=== PATIENT | female | born 1975 | race Caucasian/White ===

== ENCOUNTER → 2016-09-12 | Outpatient (CLI) | payer OTHER ==
--- NOTE | 2016-09-12 15:09 | MA ---
Screening Digital Mammogram With Tomosynthesis Clinical Indications: Routine screening. Technique: Standard digital cephalocaudal and tomosynthesis mediolateral oblique projections are obt ained. An additional CC view is performed of the right breast. The digital images were processed by rupa Watkins computer aided detection system. Comparison: December 2014, December 2013, December 2011 and October 2010 Breast density: B; There are scattered fibroglandular densities. Findings: CAD was reviewed. No suspicious findings are identified. Impression: Negative mammogram. BI-RADS 1. Recommendation: Routine screening is recommended in one year. [facility] will send a result letter to the patient. Negative mammography should not preclude additional workup of a clinically suspicious finding. The patient's information is entered into a reminder system with a target due date for her next mammo gram.
== END ==
LOC: FIMAGING 14:15
DX: Z12.31 Encounter for screening mammogram for malignant neoplasm of breast (principal)
CPT/HCPCS: G0202

== ENCOUNTER 2017-09-19 09:27 | Observation (INO) | payer OTHER ==
--- NOTE | 2017-09-19 10:14 | EDPHY ---
H & P Time Seen by Provider: 09/19/17 09:49 HPI/ROS: Chief complaint. Abdominal pain HPI. 41-year-old female presents emergency department with sudden onset of right mid abdominal pain starting at 9:00 p.m. last night. She is to use Tums and Pepto-Bismol without relief. She has a history of a ruptured ovarian cyst and feel similar but she has no low abdominal pain. It hurts to move. Pain is right mid abdomen described as sharp dull and achy. No vomiting or diarrhea. No urinary symptoms. No fever. No chest discomfort or trouble breathing. ROS Constitutional. no fever/chills, no weakness Eyes. no problems with vision ENT. no sore throat, no nasal drainage Cardiovascular. no chest pain Respiratory. no shortness of breath, no cough Abdominal. Right mid abdominal pain without vomiting or diarrhea . no problems urinating MS. no calf pain/swelling, no neck/back pain, no joint pain Skin. no rash Lymph. no swollen glands Neuro. no headache, no dizziness, no difficulty walking or with speech Past Medical/Surgical History: Ruptured ovarian cyst, hypothyroid, Social History: , nonsmoker, no alcohol Smoking Status: Never smoked Physical Exam: General Appearance: Alert well-developed female moderate distress vital signs stable Eyes: Pupils equal and round no pallor or injection. ENT, Mouth: Mucous membranes are moist. Respiratory: There are no retractions, lungs are clear to auscultation. Cardiovascular: Regular rate and rhythm. Gastrointestinal: Abdomen is soft with diffuse tenderness in the mid abdomen but especially on the right side. She is tender in the right upper quadrant and right lower quadrant at McBurney's point. Normal bowel sounds. No masses Neurological: Awake and alert, sensory and motor exams grossly normal. Skin: Warm and dry, no rashes. Musculoskeletal: Neck is supple nontender. Extremities symmetrical, full range of motion. Psychiatric: Patient is oriented X 3, there is no agitation. Constitutional: Initial Vital Signs Temperature (C) 36.6 C 09/19/17 09:30 Heart Rate 71 09/19/17 09:30 Respiratory Rate 18 09/19/17 09:30 Blood Pressure 114/73 09/19/17 09:30 O2 Sat (%) 99 09/19/17 09:30 O2 Delivery Mode Room Air Allergies/Adverse Reactions: No Known Allergies Allergy (Verified 09/19/17 09:29) Home Medications: Medication Instructions Recorded Synthroid 09/19/17 Medical Decision Making - Diagnostics Imaging Results: Imaging Impressions Abdomen CT 09/19/17 10:34 Impression: Acute appendicitis. Findings and recommendations discussed with Emergency Department physician, Tyler James at 1148 hour, 09/19/2017. Final report concurs with initial preliminary interpretation. A test result has been communicated to a licensed care provider and documented in the [employer] Critical Result system on 09/19/2017 11:49, Message ID [id number]. CT abdomen and pelvis with IV contrast reviewed by me and discussed with consistent with acute appendicitis Procedures: IV normal saline. Patient currently declines pain medication ED Course/Re-evaluation: Re-evaluation 11:50 a.m.. Patient, her , and I discussed imaging and lab results. We discussed treatment plan including recommendation for admission and surgery. She expresses understanding and agreement Patient is given IV Invanz, kept NPO, IV fluids I consulted and discussed the case with , surgery who will see the patient in the emergency department Differential Diagnosis: I considered diverticulitis, bowel obstruction, urinary tract infection, appendicitis - Data Points Laboratory Results: Laboratory Results 09/19/17 10:00 09/19/17 10:00 09/19/17 09/19/17 09/19/17 10:00 10:00 10:00 WBC 9.46 10^3/uL 10^3/uL (3.80-9.50) RBC 4.07 10^6/uL L 10^6/uL (4.18-5.33) Hgb 12.6 g/dL g/dL (12.6-16.3) Hct 37.0 % L % (38.0-47.0) MCV 90.9 fL fL (81.5-99.8) MCH 31.0 pg pg (27.9-34.1) MCHC 34.1 g/dL g/dL (32.4-36.7) RDW 12.5 % % (11.5-15.2) Plt Count 185 10^3/uL 10^3/uL (150-400) MPV 9.3 fL fL (8.7-11.7) Neut % (Auto) 74.5 % H % (39.3-74.2) Lymph % (Auto) 16.7 % % (15.0-45.0) [place] % (Auto) 6.2 % % (4.5-13.0) Eos % (Auto) 1.9 % % (0.6-7.6) Baso % (Auto) 0.4 % % (0.3-1.7) Nucleat RBC Rel Count 0.0 % % (0.0-0.2) Absolute Neuts (auto) 7.04 10^3/uL H 10^3/uL (1.70-6.50) Absolute Lymphs (auto) 1.58 10^3/uL 10^3/uL (1.00-3.00) Absolute Monos (auto) 0.59 10^3/uL 10^3/uL (0.30-0.80) Absolute Eos (auto) 0.18 10^3/uL 10^3/uL (0.03-0.40) Absolute Basos (auto) 0.04 10^3/uL 10^3/uL (0.02-0.10) Absolute Nucleated RBC 0.00 10^3/uL 10^3/uL (0-0.01) Immature Gran % 0.3 % % (0.0-1.1) Immature Gran # 0.03 10^3/uL 10^3/uL (0.00-0.10) Sodium 141 mEq/L mEq/L (135-145) Potassium 4.1 mEq/L mEq/L (3.5-5.2) Chloride 105 mEq/L mEq/L (97-110) Carbon Dioxide 25 mEq/l mEq/l (22-31) Anion Gap 11 mEq/L mEq/L (8-16) BUN 12 mg/dL mg/dL (7-23) Creatinine 0.9 mg/dL mg/dL (0.6-1.0) Estimated GFR > 60 Glucose 86 mg/dL mg/dL (70-100) Calcium 9.2 mg/dL mg/dL (8.5-10.4) Total Bilirubin 0.6 mg/dL mg/dL (0.1-1.4) Conjugated Bilirubin 0.2 mg/dL mg/dL (0.0-0.5) Unconjugated Bilirubin 0.4 mg/dL mg/dL (0.0-1.1) AST 23 IU/L IU/L (14-46) ALT 31 IU/L IU/L (9-52) Alkaline Phosphatase 39 IU/L IU/L (38-126) Total Protein 6.2 g/dL L g/dL (6.3-8.2) Albumin 3.7 g/dL g/dL (3.5-5.0) Lipase 56 IU/L IU/L (23-300) Beta HCG, Qual NEGATIVE Urine Color Urine Appearance Urine pH Ur Specific [place] Urine Protein Urine Ketones Urine Blood Urine Nitrate Urine Bilirubin Urine Urobilinogen Ur Leukocyte Esterase Urine Glucose 09/19/17 09:50 WBC RBC Hgb Hct MCV MCH MCHC RDW Plt Count MPV Neut % (Auto) Lymph % (Auto) [place] % (Auto) Eos % (Auto) Baso % (Auto) Nucleat RBC Rel Count Absolute Neuts (auto) Absolute Lymphs (auto) Absolute Monos (auto) Absolute Eos (auto) Absolute Basos (auto) Absolute Nucleated RBC Immature Gran % Immature Gran # Sodium Potassium Chloride Carbon Dioxide Anion Gap BUN Creatinine Estimated GFR Glucose Calcium Total Bilirubin Conjugated Bilirubin Unconjugated Bilirubin AST ALT Alkaline Phosphatase Total Protein Albumin Lipase Beta HCG, Qual Urine Color PALE YELLOW Urine Appearance CLEAR Urine pH 9.0 H (5.0-7.5) Ur Specific [place] 1.006 (1.002-1.030) Urine Protein NEGATIVE (NEGATIVE) Urine Ketones NEGATIVE (NEGATIVE) Urine Blood NEGATIVE (NEGATIVE) Urine Nitrate NEGATIVE (NEGATIVE) Urine Bilirubin NEGATIVE (NEGATIVE) Urine Urobilinogen NEGATIVE EU EU (0.2-1.0) Ur Leukocyte Esterase NEGATIVE (NEGATIVE) Urine Glucose NEGATIVE (NEGATIVE) Medications Given: Discontinued Medications Bupivacaine HCl (Sensorcaine 0.25% Sdv) Confirm Administered Dose 30 ml .ROUTE .STK-MED ONE Stop: 09/19/17 12:49 Last Admin: 09/19/17 13:57 Dose: 30 ml Epinephrine HCl (Epinephrine) Confirm Administered Dose 1 mg .ROUTE .STK-MED ONE Stop: 09/19/17 12:50 Last Admin: 09/19/17 13:57 Dose: 0.15 mg Ertapenem (Invanz) 1 gm IVP EDNOW ONE PRN Reason: Protocol Stop: 09/19/17 12:02 Last Admin: 09/19/17 12:18 Dose: 1 gm Hydromorphone HCl (Dilaudid) 0.5 mg IVP EDNOW ONE Stop: 09/19/17 12:27 Last Admin: 09/19/17 12:27 Dose: 0.5 mg Sodium Chloride (Ns) 1,000 mls @ 0 mls/hr IV EDNOW ONE; Wide Open PRN Reason: Protocol Stop: 09/19/17 10:35 Last Admin: 09/19/17 10:40 Dose: 1,000 mls Sodium Chloride (Ns) 1,000 mls @ 0 mls/hr IV EDNOW ONE; Wide Open PRN Reason: Protocol Stop: 09/19/17 12:02 Last Admin: 09/19/17 12:25 Dose: 1,000 mls Lactated Ringer's (Lr) 1,000 mls @ 0 mls/hr IV ONCE ONE PRN Reason: As Directed Stop: 09/19/17 13:08 Last Admin: 09/19/17 13:21 Dose: 1,000 mls Midazolam HCl (Versed) 2 mg IVP ONCALL ONE Stop: 09/19/17 13:41 Last Admin: 09/19/17 13:58 Dose: Not Given Departure - Departure Disposition: To OP Cath/Surgery Clinical Impression: Acute appendicitis Qualifiers: Acute appendicitis type: with localized peritonitis Qualified Code(s): K35.3 - Acute appendicitis with localized peritonitis Condition: Good
[2017-09-19] MEDS ORDERED: NS 1,000 ML IV ONE ×2 (10:34→12:01)
[2017-09-19 10:40] LABS: PLATELET COUNT 185 10^3/uL (150-400)
[2017-09-19] MEDS ORDERED: IOPAMIDOL (ISOVUE-300) 100 ML BTL ONE (11:02)
[2017-09-19] MEDS ORDERED: ERTAPENEM 1 GM VIAL IVP ONE (12:01)
[2017-09-19] MEDS ORDERED: HYDROmorphONE/DILAUDID 1 MG/ML INJ ONE (12:03)
[2017-09-19] MEDS ORDERED: HYDROmorphONE/DILAUDID 1 MG/ML INJ IVP ONE (12:26)
[2017-09-19] MEDS ORDERED: BUPIVACAINE 0.25% 30 ML SDV ONE (12:48)
--- NOTE | 2017-09-19 13:05 | PDGENHP ---
History and Physical - Chief Complaint ABDOMINAL PAIN - History of Present Illness pain started last night at 10pm. Since then has had unrelenting periumbilical pain with nausea. Pain hasnt moved. 6/10 in intensity. Has never had pain like this previously. No fevers or chills History Information - Allergies/Home Medication List Allergies/Adverse Reactions: No Known Allergies Allergy (Verified 09/19/17 09:29) Home Medications: Synthroid 09/19/17 [Last Taken 09/19/17 07:00] I have personally reviewed and updated: family history, medical history, social history, surgical history Past Medical History: hypothyroid - Surgical History Additional surgical history: c-sxn x2 - Family History Positive for: non-pertinent - Social History Smoking Status: Never smoked Alcohol Use: Occasionally Drug Use: None Additional social history: works in [employer], wants to get back to working out Review of Systems Review of Systems: ROS: 10pt was reviewed & negative except for what was stated in HPI & below Physical Exam Physical Exam: Temp Pulse Resp BP Pulse Ox 36.6 C 72 16 114/74 100 09/19/17 12:37 09/19/17 12:37 09/19/17 12:37 09/19/17 12:37 09/19/17 12:37 Constitutional: no apparent distress, appears nourished, not in pain Eyes: PERRL, anicteric sclera, EOMI Ears, Nose, Mouth, Throat: moist mucous membranes, hearing normal, ears appear normal, no oral mucosal ulcers Cardiovascular: regular rate and rhythym, no murmur, rub, or gallop, No edema Respiratory: no respiratory distress, no rales or rhonchi, clear to auscultation Gastrointestinal: normoactive bowel sounds, other (TTP magdalena-umbilical) Genitourinary: no bladder fullness, no bladder tenderness Skin: warm, normal color, no rashes or abrasions, no fluctuance, no induration, No mottled Musculoskeletal: full muscle strength, no muscle tenderness, normal joint ROM, no joint effusions Psychiatric: interacting appropriately, not anxious, not encephalopathic, thought process linear Lymph, Heme, Immunologic: no cervical LAD, no supraclavicular LAD Lab Data & Imaging Review 09/19/17 10:00 09/19/17 10:00 WBC 9.46 10^3/uL (3.80-9.50) 09/19/17 10:00 RBC 4.07 10^6/uL (4.18-5.33) L 09/19/17 10:00 Hgb 12.6 g/dL (12.6-16.3) 09/19/17 10:00 Hct 37.0 % (38.0-47.0) L 09/19/17 10:00 MCV 90.9 fL (81.5-99.8) 09/19/17 10:00 MCH 31.0 pg (27.9-34.1) 09/19/17 10:00 MCHC 34.1 g/dL (32.4-36.7) 09/19/17 10:00 RDW 12.5 % (11.5-15.2) 09/19/17 10:00 Plt Count 185 10^3/uL (150-400) 09/19/17 10:00 MPV 9.3 fL (8.7-11.7) 09/19/17 10:00 Neut % (Auto) 74.5 % (39.3-74.2) H 09/19/17 10:00 Lymph % (Auto) 16.7 % (15.0-45.0) 09/19/17 10:00 [place] % (Auto) 6.2 % (4.5-13.0) 09/19/17 10:00 Eos % (Auto) 1.9 % (0.6-7.6) 09/19/17 10:00 Baso % (Auto) 0.4 % (0.3-1.7) 09/19/17 10:00 Nucleat RBC Rel Count 0.0 % (0.0-0.2) 09/19/17 10:00 Absolute Neuts (auto) 7.04 10^3/uL (1.70-6.50) H 09/19/17 10:00 Absolute Lymphs (auto) 1.58 10^3/uL (1.00-3.00) 09/19/17 10:00 Absolute Monos (auto) 0.59 10^3/uL (0.30-0.80) 09/19/17 10:00 Absolute Eos (auto) 0.18 10^3/uL (0.03-0.40) 09/19/17 10:00 Absolute Basos (auto) 0.04 10^3/uL (0.02-0.10) 09/19/17 10:00 Absolute Nucleated RBC 0.00 10^3/uL (0-0.01) 09/19/17 10:00 Immature Gran % 0.3 % (0.0-1.1) 09/19/17 10:00 Immature Gran # 0.03 10^3/uL (0.00-0.10) 09/19/17 10:00 Sodium 141 mEq/L (135-145) 09/19/17 10:00 Potassium 4.1 mEq/L (3.5-5.2) 09/19/17 10:00 Chloride 105 mEq/L (97-110) 09/19/17 10:00 Carbon Dioxide 25 mEq/l (22-31) 09/19/17 10:00 Anion Gap 11 mEq/L (8-16) 09/19/17 10:00 BUN 12 mg/dL (7-23) 09/19/17 10:00 Creatinine 0.9 mg/dL (0.6-1.0) 09/19/17 10:00 Estimated GFR > 60 09/19/17 10:00 Glucose 86 mg/dL (70-100) 09/19/17 10:00 Calcium 9.2 mg/dL (8.5-10.4) 09/19/17 10:00 Total Bilirubin 0.6 mg/dL (0.1-1.4) 09/19/17 10:00 Conjugated Bilirubin 0.2 mg/dL (0.0-0.5) 09/19/17 10:00 Unconjugated Bilirubin 0.4 mg/dL (0.0-1.1) 09/19/17 10:00 AST 23 IU/L (14-46) 09/19/17 10:00 ALT 31 IU/L (9-52) 09/19/17 10:00 Alkaline Phosphatase 39 IU/L (38-126) 09/19/17 10:00 Total Protein 6.2 g/dL (6.3-8.2) L 09/19/17 10:00 Albumin 3.7 g/dL (3.5-5.0) 09/19/17 10:00 Lipase 56 IU/L (23-300) 09/19/17 10:00 Beta HCG, Qual NEGATIVE 09/19/17 10:00 Urine Color PALE YELLOW 09/19/17 09:50 Urine Appearance CLEAR 09/19/17 09:50 Urine pH 9.0 (5.0-7.5) H 09/19/17 09:50 Ur Specific [place] 1.006 (1.002-1.030) 09/19/17 09:50 Urine Protein NEGATIVE (NEGATIVE) 09/19/17 09:50 Urine Ketones NEGATIVE (NEGATIVE) 09/19/17 09:50 Urine Blood NEGATIVE (NEGATIVE) 09/19/17 09:50 Urine Nitrate NEGATIVE (NEGATIVE) 09/19/17 09:50 Urine Bilirubin NEGATIVE (NEGATIVE) 09/19/17 09:50 Urine Urobilinogen NEGATIVE EU (0.2-1.0) 09/19/17 09:50 Ur Leukocyte Esterase NEGATIVE (NEGATIVE) 09/19/17 09:50 Urine Glucose NEGATIVE (NEGATIVE) 09/19/17 09:50 Visualized and Interpreted imaging results: Yes Interpretation: CT: acute non-perforated appendicitis Assessment & Plan Assessment: Acute appendicitis Plan: 41yo female acute, non-perforated appendicitis. to OR for lap appy. RBA discussed. Abx given in ED.
[2017-09-19] MEDS ORDERED: LR 1,000 ML IV ONE (13:07)
[2017-09-19] MEDS ORDERED: KETOROLAC 30 MG/1 ML SDV ONE (13:15)
[2017-09-19] MEDS ORDERED: PROPOFOL 200 MG/20 ML VIAL ONE (13:15)
[2017-09-19] MEDS ORDERED: LIDOCAINE 2% 5 ML SDV ONE (13:15)
[2017-09-19] MEDS ORDERED: ONDANSETRON 4 MG/2 ML VIAL ONE (13:15)
[2017-09-19] MEDS ORDERED: ROCURONIUM 50 MG/5 ML VIAL ONE (13:15)
[2017-09-19] MEDS ORDERED: DEXAMETHASONE 4 MG/ML VIAL ONE (13:15)
[2017-09-19] MEDS ORDERED: fentaNYL 100 MCG/2 ML INJ ONE (13:15)
[2017-09-19] MEDS ORDERED: MIDAZOLAM 2 MG/2 ML VIAL ONE (13:19)
[2017-09-19] MEDS ORDERED: MIDAZOLAM 2 MG/2 ML VIAL IVP ONE (13:40)
--- NOTE | 2017-09-19 13:42 | PDANEPAE ---
ANE History of Present Illness appy ANE Past Medical History - Cardiovascular History Hx Hypertension: No Hx Arrhythmias: No Hx Chest Pain: No Hx Coronary Artery / Peripheral Vascular Disease: No Hx CHF / Valvular Disease: No Hx Palpitations: No - Pulmonary History Hx COPD: No Hx Asthma/Reactive Airway Disease: No Hx Recent Upper Respiratory Infection: No Hx Oxygen in Use at Home: No Hx Sleep Apnea: No - Neurologic History Hx Cerebrovascular Accident: No Hx Seizures: No Hx Dementia: No - Endocrine History Hx Diabetes: No - Renal History Hx Renal Disorders: No - Liver History Hx Hepatic Disorders: No - Neurological & Psychiatric Hx Hx Neurological and Psychiatric Disorders: No ANE Review of Systems Review of Systems: - Exercise capacity Exercise capacity: >=4 METS ANE Patient History - Allergies Allergies/Adverse Reactions: No Known Allergies Allergy (Verified 09/19/17 09:29) - Home Medications Home Medications: Synthroid 09/19/17 [Last Taken 09/19/17 07:00] - NPO status NPO Since - Liquids (Date): 09/18/17 NPO Since - Liquids (Time): 21:30 NPO Since - Solids (Date): 09/18/17 NPO Since - Solids (Time): 21:00 - Anes Hx Anes Hx: no prior problems - Smoking Hx Smoking Status: Never smoked - Alcohol Use Alcohol Use: Occasionally ANE Labs/Vital Signs - Labs Result Diagrams: 09/19/17 10:00 09/19/17 10:00 - Vital Signs Blood Pressure: 105/71 Heart Rate: 66 Respiratory Rate: 16 O2 Sat (%): 93 Height: 165.1 cm Weight: 65.771 kg ANE Physical Exam - Airway Mallampati Score: Class 2 Mouth exam: normal dental/mouth exam - Pulmonary Pulmonary: no respiratory distress - Cardiovascular Cardiovascular: regular rate and rhythym - ASA Status ASA Status: I ANE Anesthesia Plan Anesthesia Plan: general endotracheal anesthesia
[2017-09-19] MEDS ORDERED: SUGAMMADEX SODIUM 200 MG/2 ML VIAL IVP ONE (13:46)
[2017-09-19] MEDS ORDERED: LR 500 ML IV PRN (13:57)
[2017-09-19] MEDS ORDERED: ONDANSETRON 4 MG/2 ML VIAL IVP PRN ×2 (13:57→14:07)
[2017-09-19] MEDS ORDERED: NALOXONE HCL 0.4 MG/ML INJ IVP PRN (13:57)
[2017-09-19] MEDS ORDERED: ALBUTEROL 3 ML DEYVIAL IH PRN (13:57)
[2017-09-19] MEDS ORDERED: fentaNYL 100 MCG/2 ML INJ IVP PRN (13:57)
[2017-09-19] MEDS ORDERED: HYDROmorphONE/DILAUDID 1 MG/ML INJ IVP PRN ×2 (13:57→14:07)
[2017-09-19] MEDS ORDERED: HYDROCODONE/APAP 5/325 TAB PO PRN (14:07)
--- NOTE | 2017-09-19 14:07 | POSTOPPROG ---
Post Op Note Date of Operation: 09/19/17 Surgeon: Gurdeep Curiel Anesthesiologist: Prince Anesthesia: GET(General Endotracheal) Pre-op Diagnosis: appendicitis Post-op Diagnosis: same Procedure: lap appy Findings: acute, non perforated appendicitis Inf/Abcess present in the surg proc area at time of surgery?: No EBL: Minimal Total fluids administered: 750cc NS washout Specimen(s): appendix
--- NOTE | 2017-09-19 14:08 | POSTANESTH ---
Post Anesthetic Evaluation Cardiovascular Status: Normal, Stable Respiratory Status: Normal, Stable Level of Consciousness/Mental Status: Can Participate in Eval Pain Control: Adequate, Prn Tx Ordered Nausea/Vomiting Control: Adequate, Prn Tx Ordered Complications Possibly Related to Anesthesia: None Noted
[2017-09-19] MEDS ORDERED: D5W 1/2 NS W/ 20 KCl/L 1,000 ML IV SCH (14:15)
--- NOTE | 2017-09-19 15:05 | GOP ---
[f rep st] OPERATIVE REPORT DATE OF OPERATION: 09/19/2017 SURGEON: Gurdeep Curiel MD BLUEPRINT REPRODUCER: None ANESTHESIA: General endotracheal. ANESTHESIOLOGIST: Jose Morrison MD PREOPERATIVE DIAGNOSIS: Acute appendicitis. POSTOPERATIVE DIAGNOSIS: Acute appendicitis. PROCEDURE PERFORMED: Laparoscopic appendectomy. FINDINGS: Acute indurated nonperforated appendicitis. SPECIMENS: Appendix. ESTIMATED BLOOD LOSS: 5 cc DESCRIPTION OF PROCEDURE: The patient was greeted in the preoperative suite. Once again, risks, benefits, and alternatives were discussed. Consent was signed. She was then brought back to the operative suite, placed on the OR table in a supine position. After all anesthesia machines, including SCDs, were on and functioning, [facility] time-out was performed. Antibiotics were given on-call to the operating room. After successful induction of general anesthesia, the patient's abdomen was prepped and draped in the typical sterile fashion. I entered the abdomen via an infraumbilical cutdown through which the Veress needle was passed. I achieved pneumoperitoneum to 15 mmHg which was well tolerated by the patient. Through this, I inserted a 12 mm Visiport. Once successfully in the abdomen, I inserted 2 additional 5 mm trocars, 1 in the suprapubic, 1 in the left lower quadrant, both under direct visualization. I identified the appendix by tracing the taeniae inferiorly. It appeared indurated but not acutely perforated. I created a window at the base of the appendix and first successfully took the mesoappendix using the Harmonic Scalpel. Once successfully skeletonized, I amputated the appendix from the cecal base using a single fire of the Endo-KERMIT blue load stapler. It was then placed in an EndoCatch bag and removed. I inspected my staple line which was hemostatic and intact. I irrigated the right lower quadrant and pelvis was 750 cc sterile saline, noting clear effluent in the suction canister. Local anesthesia was then infiltrated into all port sites which were then removed under direct visualization. I then evacuated my pneumoperitoneum. I closed my infraumbilical port site with an 0 Vicryl stitch noting excellent fascial reapproximation. I closed the skin with running 4-0 Monocryl over which Dermabond was placed. The patient was then extubated in the operative suite and taken to the PACU in satisfactory condition. DRAINS: None. COUNTS: All counts were reported as correct x2. /[id number]/MODL MTDD
[2017-09-19] MEDS: ACETAMINOPHEN 325 MG TAB PO PRN (17:51)
[2017-09-19 18:27] VITALS: RESP 16
[2017-09-19] MEDS: IBUPROFEN 600 MG TAB PO SCH (20:11)
[2017-09-20] MEDS: IBUPROFEN 600 MG TAB PO SCH (01:47)
[2017-09-20] MEDS: ACETAMINOPHEN 325 MG TAB PO PRN ×2 (01:48→08:10)
[2017-09-20] MEDS ORDERED: LEVOTHYROXINE 100 MCG TAB PO SCH (06:00)
--- NOTE | 2017-09-20 07:41 | PDDCSUM ---
Discharge Summary Discharge Summary: DISCHARGE SUMMARY Date of Admission September 19 Date of Discharge September 20 DISCHARGE DIAGNOSES -acute appendicitis HOSPITAL COURSE The patient was admitted from the ED and taken to the operating room where they underwent an uneventful laparoscopic appendectomy. They were subsequently taken to the PACU and then the general medical floor. The hospital course was uneventful, their diet was advanced to a regular diet which was well tolerated and their pain was well controlled. They were discharged home in stable condition on the morning of the . DISCHARGE MEDICATIONS All home medications restarted, the only new medication prescription was for [place] as needed for pain DISPOSITION Home FOLLOW UP Follow up with me in the office in 10-14 days for a general post-operative visit
[2017-09-20 08:42] VITALS: BP 99/63; PULSE 59; TEMP 98.3; O2SAT 96
[2017-09-20] MEDS ORDERED: IBUPROFEN 600 MG TAB PO PRN (09:00)
--- NOTE | 2017-09-20 11:55 | SOAPPROG ---
SOAP Progress Note Assessment/Plan: Assessment/Plan: 41yo F POD#1 s/p lap appy Pain controlled Passing flatus Regular diet Path pending Dispo: DC today. F/u in [address] Curiel. No heavy lifting pushing pulling x 2 weeks. Shower tomorrow S: feeling well. ate breakfast this morning. feels bloated. pain controlled O: laying in bed, comfortable, NAD No increased WOB +BS, soft, nondistended, min tender. Incisions CDI Objective: Vital Signs Temp Pulse Resp BP Pulse Ox 36.8 C 59 L 16 99/63 L 96 09/20/17 08:25 09/20/17 08:25 09/20/17 08:25 09/20/17 08:25 09/20/17 08:25 09/19/17 09/20/17 09/21/17 05:59 05:59 05:59 Intake Total 700 Balance 700 ICD10 Worksheet Patient Problems: Problems Problem Status Onset Acute appendicitis Acute
== END 2017-09-20 08:40 | disposition home or self-care (01) ==
LOC: FSGY 12:57 → F3E 14:07 → FOB 15:41
PROVIDERS: ADMIT Surgery; ATTEND Surgery
PROC: 0DTJ4ZZ Resection of Appendix, Percutaneous Endoscopic Approach (ICD-10-PCS; principal; 2017-09-19 13:15)
DX: K35.80 Unspecified acute appendicitis (principal)
CPT/HCPCS: 44970; 74177; 96374; 96375; 99285; G0378; J0171; J1100; J1170; J1335; J1885; J2250; J2405; J2704; J3010; Q9967

== ENCOUNTER → 2018-04-24 | Outpatient (CLI) | payer OTHER ==
[~2018-04-24] MED LIST: SINCALIDE 5 MCG VIAL IV ONE
== END ==
LOC: FIMAGING 10:05
PROVIDERS: ATTEND Obstetrics & Gynecology
DX: Z12.31 Encounter for screening mammogram for malignant neoplasm of breast (principal); K82.8 Other specified diseases of gallbladder
CPT/HCPCS: A9537

== ENCOUNTER 2018-07-18 06:49 | Day surgery (SDC) | payer OTHER ==
--- NOTE | 2018-07-17 15:48 | GHP ---
DATE OF ADMISSION: 07/18/2018 DATE OF PLANNED PROCEDURE: 07/18/2018 PREOPERATIVE DIAGNOSES: Left shoulder superior labral tear with partial- thickness rotator cuff tear. PLANNED PROCEDURE: Labral repair, possible rotator cuff repair, subacromial decompression. HISTORY: The patient is a 42-year-old female who had a several month history of worsening shoulder pain, limited range of motion. MRI was obtained, which showed a complete labral tear involving the superior aspect of the labrum, as well as a near 50% thickness tear of the rotator cuff and impingement anatomy. Decision then made to proceed with a labral repair, possible rotator cuff repair , and decompression. She also needs to have her gallbladder taken out. The plan is to do that first and I will follow after Dr. Soto completes that procedure. PRIOR MEDICAL HISTORY: Hypothyroidism. PRIOR SURGICAL HISTORY: None. ALLERGIES: No known drug allergies. MEDICATIONS: Levothyroxine 100 mcg daily. SOCIAL HISTORY: Does not smoke. Occasional alcohol use. 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 Lives here in town. REVIEW OF SYSTEMS: No shortness of breath or chest pain. PHYSICAL EXAM: VITAL SIGNS: She is 5 feet 5 inches tall, weighs 140 pounds. Blood pressure is 116/64, heart rate 62, respiratory rate 14 on room air. GENERAL: Alert, oriented x3. HEENT: Normocephalic, atraumatic. Extraocular muscles intact. NECK: Supple. There is no lymphadenopathy. No JVD. CHEST: Clear to auscultation. CARDIOVASCULAR: Regular rate and rhythm. ABDOMEN: Soft, nontender, nondistended. EXTREMITIES: Focusing on left shoulder, no obvious atrophy in the supraspinatus, supraspinatus fossae. There is a little prominence over the AC joint. She does have tenderness over the long head of the biceps. Positive Speed's and Yergason's test. Active range of motion. Full extension about 160 degrees of forward flexion actively, external rotation 60 degrees, internal rotation she can get her thumb to L5. Rotator cuff strength, supraspinatus, infraspinatus 4/5 with pain, subscapularis 4+/5. Positive impingement sign. Negative cross-body adduction sign. IMAGING: MRI is reviewed, which does show a superior labral tear extending from the 10 to 2, undersurface tear involving the distal supraspinatus tendon at the greater tuberosity. It involves about a third of the tendon. It is 9 mm in AP dimension. There is some subchondral bone marrow edema with this. Infraspinatus and subscapularis are both intact. The long head of the biceps is normally positioned and intact in the groove. There is tearing of the superior labrum. Articular cartilage, otherwise, intact. ASSESSMENT: Superior labral tear, partial thickness rotator cuff tear. PLAN: To proceed with labral repair, possible rotator cuff repair, and decompression left shoulder. This is to follow Dr. Soto's gallbladder removal. Risks, benefits, including postoperative stiffness, infection, and need for additional surgery were all discussed. She understands these risks. Preoperative paperwork has been completed /[id number]/MODL MTDD
[2018-07-18] MEDS ORDERED: ceFAZolin 2 GM/DEXTROSE 100 ML IV ONE (07:09)
[2018-07-18] MEDS ORDERED: LR 1,000 ML IV ONE (07:14)
[2018-07-18] MEDS ORDERED: LIDOCAINE 1% 300 MG/30 ML SDV ONE (07:39)
[2018-07-18] MEDS ORDERED: BUPIVACAINE 0.5% 30 ML SDV ONE ×2 (07:39→10:40)
--- NOTE | 2018-07-18 08:09 | PDHPUP ---
History & Physical Update H&P update statement: This history and physical update is based on an assessment of the patient which was completed after admission or registration (within 24 hours), but prior to the surgery/procedure. H&P update: H&P reviewed & patient examined, no change in patient's condition since H&P completed
[2018-07-18] MEDS ORDERED: MIDAZOLAM 2 MG/2 ML VIAL IVP ONE (08:11)
--- NOTE | 2018-07-18 08:11 | PDANEPAE ---
ANE Past Medical History - Cardiovascular History Hx Hypertension: No Hx Arrhythmias: No Hx Chest Pain: No Hx Coronary Artery / Peripheral Vascular Disease: No Hx CHF / Valvular Disease: No Hx Palpitations: No - Pulmonary History Hx COPD: No Hx Asthma/Reactive Airway Disease: No Hx Recent Upper Respiratory Infection: No Hx Oxygen in Use at Home: No Hx Sleep Apnea: No Sleep Apnea Screening Result - Last Documented: Negative - Neurologic History Hx Cerebrovascular Accident: No Hx Seizures: No Hx Dementia: No - Endocrine History Hx Diabetes: No Endocrine History Comment: hypothyroid - Renal History Hx Renal Disorders: No - Liver History Hx Hepatic Disorders: No Hepatic History Comment: gallbladder disease - Neurological & Psychiatric Hx Hx Neurological and Psychiatric Disorders: No Neurological / Psychiatric History Comment: situational depression for a few weeks after appendectomy - feels it was r/t not being able to go to the gym - Cancer History Hx Cancer: No - Congenital Disorder History Hx Congenital Disorders: No - GI History Hx Gastrointestinal Disorders: No - Other Health History Other Health History: left shoulder tear - Chronic Pain History Chronic Pain: Yes (left shoulder) - Surgical History Prior Surgeries: appendectomy, 09/2017. foot surgery 1998. x2 ANE Review of Systems Review of Systems: - Exercise capacity METS (RN): 5 METS ANE Patient History - Allergies Allergies/Adverse Reactions: No Known Allergies Allergy (Verified 06/20/18 11:40) - Home Medications Home Medications: Herbals/Supplements -Info Only 09/19/17 [Last Taken 3 Days Ago ~07/15/18] Levothyroxine [Synthroid 100 mcg (*)] 09/19/17 [Last Taken 07/17/18] Advil PRN 06/20/18 [Last Taken 1 Week Ago ~07/11/18] Stool Softener 06/20/18 [Last Taken 3 Weeks Ago ~06/27/18] - NPO status NPO Since - Liquids (Date): 07/17/18 NPO Since - Liquids (Time): 21:00 NPO Since - Solids (Date): 07/17/18 NPO Since - Solids (Time): 21:00 - Smoking Hx Smoking Status: Never smoked - Family Anes Hx Family Hx Anesthesia Complications: none ANE Labs/Vital Signs - Vital Signs Blood Pressure: 101/69 Heart Rate: 66 Respiratory Rate: 14 O2 Sat (%): 97 Height: 165.1 cm Weight: 63.503 kg ANE Physical Exam - Airway Neck exam: FROM Mallampati Score: Class 1 Mouth exam: normal dental/mouth exam - Pulmonary Pulmonary: no respiratory distress - Cardiovascular Cardiovascular: regular rate and rhythym - ASA Status ASA Status: II ANE Anesthesia Plan Anesthesia Plan: general endotracheal anesthesia Regional Anesthesia: interscalene BP NB
[2018-07-18] MEDS ORDERED: EPINEPHrine 30 MG/30 ML MDV (0.1 MG/0.1 ML) ONE (08:13)
[2018-07-18] MEDS ORDERED: MIDAZOLAM 2 MG/2 ML VIAL ONE (08:18)
[2018-07-18] MEDS ORDERED: PROPOFOL/EMULSION 500 MG/50 ML BOTTLE IV ONE (08:18)
[2018-07-18] MEDS ORDERED: CALCIUM CHLORIDE 1 GM/10 ML INJ ONE (08:30)
[2018-07-18] MEDS ORDERED: THROMBIN (BOVINE) 5,000 UNIT VIAL TP ONE (08:30)
[2018-07-18] MEDS ORDERED: fentaNYL 250 MCG/5 ML INJ ONE (08:31)
--- NOTE | 2018-07-18 09:25 | POSTOPPROG ---
Post Op Note Date of Operation: 07/18/18 Surgeon: Tavares Soto Pharmacy Clerk: Marley Santiago PA-C Anesthesiologist: Abdiel Anesthesia: GET(General Endotracheal) Pre-op Diagnosis: Biliary dyskinesia Post-op Diagnosis: same Procedure: Laparoscopic cholecystectomy Findings: Small cystic duct and artery Inf/Abcess present in the surg proc area at time of surgery?: No EBL: Minimal Complications: No immediate Specimen(s): gallbladder
[2018-07-18] MEDS ORDERED: ePHEDrine SULFATE 25 MG/5 ML SYR ONE (09:32)
[2018-07-18] MEDS: LIDO/EPI 1% **for epidural** 30 ML SDV ONE ×2 (10:12→11:14)
[2018-07-18] MEDS ORDERED: ONDANSETRON 4 MG/2 ML VIAL ONE ×2 (10:39→14:04)
[2018-07-18] MEDS ORDERED: SUGAMMADEX SODIUM 200 MG/2 ML VIAL IVP ONE (10:39)
[2018-07-18] MEDS ORDERED: DEXAMETHASONE 4 MG/ML VIAL ONE (10:39)
[2018-07-18] MEDS ORDERED: EPINEPHrine 1 MG/ML INJ ONE (10:40)
[2018-07-18] MEDS ORDERED: fentaNYL 100 MCG/2 ML INJ ONE (11:07)
[2018-07-18] MEDS: fentaNYL 100 MCG/2 ML INJ IVP PRN ×2 (11:10→11:24)
[2018-07-18] MEDS ORDERED: NALOXONE HCL 0.4 MG/ML INJ IVP PRN (11:32)
[2018-07-18] MEDS ORDERED: NS 500 ML IV PRN (11:32)
[2018-07-18] MEDS: ONDANSETRON 4 MG/2 ML VIAL IVP PRN ×2 (12:18→14:06)
[2018-07-18] MEDS ORDERED: OXYCODONE/APAP 5/325 TAB ONE (12:27)
[2018-07-18] MEDS ORDERED: OXYCODONE/APAP 5/325 TAB PO PRN (12:42)
--- NOTE | 2018-07-18 12:43 | GOP ---
DATE OF OPERATION: 07/18/2018 SURGEON: Jeremías Douglass MD FACE PAINTER: Aj Myers, CLERICAL RECEPTIONIST, [facility]. ANESTHESIA: Interscalene block with general. ANESTHESIOLOGIST: Dr. Meadows. PREOPERATIVE DIAGNOSIS: Superior labral tear left shoulder with possible rotator cuff tear. POSTOPERATIVE DIAGNOSIS: Superior labral tear left shoulder with possible rotator cuff tear. PROCEDURE PERFORMED: 1. Arthroscopic labral repair. 2. Rotator cuff debridement. 3. Subacromial decompression. FINDINGS: ESTIMATED BLOOD LOSS: Minimal. DESCRIPTION OF PROCEDURE: Following Dr. Soto's laparoscopic cholecystectomy, the patient was then re-prepped and draped and positioned in the beach chair position with all bony prominences well padd ed. The left upper extremity was prepped and draped in usual sterile fashion. I instilled 30 mL of 1% lidocaine with epinephrine and 30 mL of normal saline through a standard posterior portal. A smal l kylie incision and introduced the camera through the posterior portal and then obtained a standard a nterior portal and placed a 5 mm plastic working cannula through there. The labrum was torn from 10 o'clock back to 1 o'clock. Biceps tendon was intact as was its anchor. Undersurface of the rotator cuff showed some mild fraying at the anterior edge of the supraspinatus. No full-thickness defects. I was able to debride this undersurface partial tear with a motorized shaver. I then obtained a sup erior portal under direct visualization. Placed an 8 mm cannula through there. I then roughened up the superior and anterior glenoid rim using a motorized shaver and round bur. We then passed 2 sutur es superiorly and looped them back on themselves and then drilled 2 engine pilot holes, placed 2 anchors and securely fixed the superior aspect of the labrum back to the glenoid rim. Suture ends were trimmed. We repeated this procedure anteriorly with 1 anchor at about the 10 o'clock position. She had good external rotation without undue tension on the repair up to 60 degrees. I then repositioned the cam era in the subacromial space and obtained a standard lateral portal under direct visualization. Look ing at the upper surface of the rotator cuff there were no full-thickness defects. I debrided back t o the subacromial space which had quite a bit of bursitis and synovitis, type 2 acromion. Using the barrel kris was debrided back to get a little bit more clearance. The AC joint was in good shape wit hout spurring or narrowing. Instruments were then withdrawn. Portal incisions were closed with 3-0 nylon. I placed 8 mL of PRP right at the labral repair site and injected additional 6 mL of 0.5% Mar roger with epinephrine around the portal incisions. Sterile dressing and shoulder mobilizer were jayda lied. The patient was awakened from anesthesia and taken to the recovery room in satisfactory condit ion. There were no immediate intraoperative complications. Romulo Myers's assistance was required t hroughout the entire case. COMPLICATIONS: None. DRAINS: None. IMPLANTS USED: Arthrex 2.9 mm PushLock anchors x3. HISTORY: The patient is a 42-year-old female, who injured her left shoulder several months ago, has failed conservative management. MRI was obtained, which showed a SLAP tear and some fraying of the r otator cuff. Decision was made to proceed with an arthroscopic labral repair, possible rotator cuff repair and decompression. /[id number]/MODL
[2018-07-18 14:52] VITALS: BP 116/76
== END 2018-07-18 14:50 | disposition home or self-care (01) ==
LOC: FSGY 06:49
PROVIDERS: ATTEND Surgery
PROC: 0MM24ZZ Reattachment of Left Shoulder Bursa and Ligament, Percutaneous Endoscopic Approach (ICD-10-PCS; principal; 2018-07-18 08:15)
PROC: 0RNK4ZZ Release Left Shoulder Joint, Percutaneous Endoscopic Approach (ICD-10-PCS; principal; 2018-07-18 08:15)
PROC: 0LQ24ZZ Repair Left Shoulder Tendon, Percutaneous Endoscopic Approach (ICD-10-PCS; principal; 2018-07-18 08:15)
PROC: 0FT44ZZ Resection of Gallbladder, Percutaneous Endoscopic Approach (ICD-10-PCS; principal; 2018-07-18 08:15)
DX: M24.112 Other articular cartilage disorders, left shoulder (principal); M75.112 Incomplete rotator cuff tear or rupture of left shoulder, not specified as traumatic; M75.42 Impingement syndrome of left shoulder; E03.9 Hypothyroidism, unspecified; K82.8 Other specified diseases of gallbladder
CPT/HCPCS: C1713; J0171; J0690; J1100; J2250; J2405; J2704; J3010